=== PATIENT | female | born 1970 | race Caucasian/White ===

== ENCOUNTER 2019-03-01 17:20 | Emergency (ER) | payer SELFPAY ==
[~2019-03-01] VITALS: Ht 167.6 cm; Wt 75.0 kg
[2019-03-01] MEDS ORDERED: SODIUM CHLORIDE 0.9% 1,000 ML IV ONE (18:27)
[2019-03-01] MEDS ORDERED: LEVETIRACETAM 1000MG/100ML 100 ML IV ONE (18:30)
[2019-03-01 18:51] LABS: HEMATOCRIT. 39.4 % (36.0-48.0); HEMOGLOBIN. 13.4 g/dL (12.0-16.0); MEAN CORPUSCULAR HEMOGLOBIN 28.5 pg (28.0-32.0); MEAN CORPUSCULAR VOLUME 83.7 fL (81.0-99.0); MEAN PLATELET VOLUME 7.6 fl (7.4-10.4); PLATELET 255 x1000/uL (130-400); RED BLOOD CELL COUNT 4.71 mill/uL (4.2-5.4); RED CELL DISTRIBUTION WIDTH 24.7 % (11.6-14.6)
[2019-03-01 18:52] LABS: CHLORIDE 107 mEq/L (98-107)
[2019-03-01 18:56] LABS: ETHANOL BLOOD < 10 mg/dL
[2019-03-01 20:01] LABS: PLATELET ESTIMATE NORMAL
[2019-03-01 22:55] VITALS: BP 122/75
== END 2019-03-01 22:45 | disposition home or self-care (01) ==
LOC: ER 17:20
DX: R56.9 Unspecified convulsions (principal)
CPT/HCPCS: 36415; 80053; 80320; 85025; 96365; 96366; 99283; J1953; J7030; G0480